=== PATIENT | male | born 2000 | race Caucasian/White ===

== ENCOUNTER 2019-10-19 14:05 | Emergency (ER) | payer BC, OTHER ==
--- NOTE | 2019-10-19 14:18 | EDM.PDOC ---
ED HPI GENERAL MEDICAL PROBLEM - General Chief Complaint: General Stated Complaint: NEEDS DIABETIC MEDS Time Seen by Provider: 10/19/19 14:17 - History of Present Illness INITIAL COMMENTS - FREE TEXT/NARRATIVE: 19-year-old male presents the emergency room to get his insulin refilled. The patient is either on Humalog or NovoLog for his insulin pump. Apparently the made at the hotel he is staying at accidentally threw it away and he cannot find it. 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 The patient's last blood sugar this morning was 230. He ran out of insulin about an hour ago but he has not had anything to eat since this morning. - Related Data Allergies Allergy/AdvReac Type Severity Reaction Status Date / Time Penicillins Allergy Hives Verified 02/03/19 19:28 CDT Home Meds: Home Meds Insulin Lispro [HumaLOG] 1 unit SQ ACBED 06/29/18 [History] Past Medical History Endocrine/Metabolic History: Reports: Diabetes, Type II Insulin Pump Model and Data Lead: Med[employer] [id number] - Infectious Disease History Infectious Disease History: Reports: None Social & Family History - Family History Family Medical History: Noncontributory ED ROS GENERAL - Review of Systems Review Of Systems: See Below Constitutional: Reports: No Symptoms Respiratory: Reports: No Symptoms Cardiovascular: Reports: No Symptoms GI/Abdominal: Reports: No Symptoms ED EXAM, GENERAL - Physical Exam Exam: See Below Exam Limited By: No Limitations General Appearance: Alert, No Apparent Distress Respiratory/Chest: No Respiratory Distress, Lungs Clear, Normal Breath Sounds Cardiovascular: Regular Rate, Rhythm, No Edema, No Murmur Course - Re-Assessments/Exams Free Text/Narrative Re-Assessment/Exam: 10/19/19 14:36 He has an empty bottle out instructed he is going out to grab it so we know which one for sure to give him. 10/19/19 14:38 Patient is on NovoLog. The patient will be given a as needed prescription for NovoLog 10 cc 100 units/mL bottle with as needed refills. Will dispense 2 bottles at a time Departure - Departure Time of Disposition: 14:36 Disposition: Home, Self-Care 01 Clinical Impression: Diabetes type I - Discharge Information Referrals: PCP,None [Primary Care Provider] - Forms: ED Department Discharge Additional Instructions: Return to the emergency room with any questions problems or worsening symptoms. You may also follow-up in the hospital clinic as needed their phone number is [phone]. Use the NovoLog as directed for your pump. You can get refills on this prescription as needed. Sepsis Event Note - Focused Exam Date Exam was Performed: 10/19/19 Time Exam was Performed: 14:34
== END 2019-10-19 14:55 | disposition home or self-care (01) ==
LOC: JD.ED 14:05
CPT/HCPCS: 99283; 99284

== ENCOUNTER 2019-12-08 18:44 | Emergency (ER) | payer BC ==
--- NOTE | 2019-12-08 19:09 | EDM.PDOC ---
ED HPI GENERAL MEDICAL PROBLEM - General Chief Complaint: Skin Complaint Stated Complaint: BUG BITES TO BACK OF LEG Time Seen by Provider: 12/08/19 19:00 Source of Information: Reports: Patient, RN Notes Reviewed History Limitations: Reports: No Limitations - History of Present Illness INITIAL COMMENTS - FREE TEXT/NARRATIVE: Patient is a 19-year-old male who presents to the ED for evaluation of a few bug bites on his legs. Patient notes he is a type I diabetic, but his sugars have been okay. He was [place] wheeling in [place] through the [place] this weekend, and did receive quite a few bug bites to his bilateral lower legs. He is not sure exactly after mosquitoes and or ticks, he did not find a tick that was attached to his body however there is one area on his left lower leg near the Achilles tendon on the lateral portion that is roughly quarter sized, red tender to the touch also slightly warm. Patient notes that he is having a little bit of throbbing pain at rest, but when he flexes his foot, he does seem to have more pain with this. He denies any fevers or chills, other sick-like symptoms, cough/shortness of breath, nausea/vomiting/diarrhea. 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 ED EXAM, SKIN/RASH Exam: See Below Exam Limited By: No Limitations General Appearance: Alert, WD/WN, No Apparent Distress Respiratory/Chest: No Respiratory Distress, Lungs Clear, Normal Breath Sounds, No Accessory Muscle Use, Chest Non-Tender Cardiovascular: Normal Peripheral Pulses, Regular Rate, Rhythm, No Murmur Peripheral Pulses: 3+: Dorsalis Pedis (L), Dorsalis Pedis (R) Extremities: Normal Inspection (With the exception of multiple bug bites, see skin assessment for further detail.), Normal Range of Motion, Normal Capillary Refill Neurological: Alert, Oriented, Normal Cognition, No Motor/Sensory Deficits Psychiatric: Normal Affect, Normal Mood Skin: Warm, Dry, Intact, Normal Color, Other (Multiple punctate lesions, consistent with bug bites over the entire surface of the bilateral lower legs. There is an area on the left lower leg, near the Achilles tendon on the lateral side roughly quarter size that is tender, painful to the touch, little bit warm, and suspicious for cellulitis.) Course - Vital Signs Last Recorded V/S: Last Vital Signs Temp 98.9 F 12/08/19 18:55 Pulse 81 12/08/19 18:55 Resp 18 12/08/19 18:55 BP 131/84 12/08/19 18:55 Pulse Ox 99 12/08/19 18:55 - Re-Assessments/Exams Free Text/Narrative Re-Assessment/Exam: 12/08/19 19:16 Patient presents to the ED for evaluation of his bug bites, there is 1 area that was quite concerning for possible cellulitis or otherwise, area was quite tender. I will start him on doxycycline 100 mg twice daily for the next 7 days, as he is unsure as to which bugs could have bit him, and states that there were ticks in the area. Does not have the characteristic bull's-eye rash, and no other symptoms of suspected Lyme disease. Departure - Departure Time of Disposition: 19:08 Disposition: Home, Self-Care 01 Condition: Good Clinical Impression: Cellulitis Qualifiers: Site of cellulitis: extremity Site of cellulitis of extremity: lower extremity Laterality: left Qualified Code(s): L03.116 - Cellulitis of left lower limb - Discharge Information *PRESCRIPTION DRUG MONITORING PROGRAM REVIEWED*: No *COPY OF PRESCRIPTION DRUG MONITORING REPORT IN PATIENT BEAN: No Prescriptions: Doxycycline [Vibramycin] 100 mg PO BID #14 tab Instructions: Cellulitis, Adult, [id number] Referrals: PCP,Not In Area [Primary Care Provider] - Forms: ED Department Discharge Additional Instructions: You were evaluated in the ER today regarding a suspected skin infection. It does appear that you have a cellulitis. You were given a antibiotic, doxycycline 100 mg 2 times a day for the next 7 days. Please take as prescribed until the course is done or told otherwise by different provider. Please note that this antibiotic will take at least 48 hours to start working appropriately. This particular antibiotic can cover any sort of tickborne illness if this is something that was caused by a tick. You may try to use heat/ice packs to the area to help reduce pain/swelling. Try to keep the leg elevated as much as possible to help relieve swelling. You may take 500 mg Tylenol or 600 mg ibuprofen every 6 hours as needed for further pain relief. Do not exceed 4000 mg Tylenol or 3200 mg ibuprofen in a 24-hour time span. Please return to the ER at any time if your symptoms change or worsen. Sepsis Event Note (ED) - Evaluation Sepsis Screening Result: No Definite Risk - Focused Exam Vital Signs: Vital Signs Temp Pulse Resp BP Pulse Ox 12/08/19 18:55 98.9 F 81 18 131/84 99
== END 2019-12-08 19:18 | disposition home or self-care (01) ==
LOC: JD.ED 18:44
DX: L03.116 Cellulitis of left lower limb (principal); E10.9 Type 1 diabetes mellitus without complications; Z88.0 Allergy status to penicillin
CPT/HCPCS: 99282